=== PATIENT | male | born 1985 | race Two or more races ===

== ENCOUNTER 2023-01-19 11:00 | Inpatient (IN) | payer OTHER ==
[~2023-01-19] VITALS: Ht 185.4 cm; Wt 61.2 kg
[2023-01-19] MEDS ORDERED: HUMIRA PEN40 MG/0.2 (14:42)
[2023-01-24] MEDS ORDERED: RAYOS5 MG (08:08)
[2023-01-24] MEDS ORDERED: FLONASE16 GM (08:09)
== END 2023-01-29 15:50 | disposition home or self-care (01) | DRG 329 ==
LOC: O/R 01-24 05:50 → SURH 01-24 05:50
PROVIDERS: ADMIT Colon & Rectal Surgery; ATTEND Colon & Rectal Surgery
PROC: 0DNW0ZZ Release Peritoneum, Open Approach (ICD-10-PCS; 2023-01-24)
PROC: 0DBN0ZZ Excision of Sigmoid Colon, Open Approach (ICD-10-PCS; 2023-01-24)
PROC: 0DJD8ZZ Inspection of Lower Intestinal Tract, Via Natural or Artificial Opening Endoscopic (ICD-10-PCS; 2023-01-24)
PROC: 0DTF0ZZ Resection of Right Large Intestine, Open Approach (ICD-10-PCS; principal; 2023-01-24 10:05)
DX: K50.012 Crohn's disease of small intestine with intestinal obstruction (principal); K65.8 Other peritonitis; K56.50 Intestinal adhesions [bands], unspecified as to partial versus complete obstruction; K63.2 Fistula of intestine; R59.0 Localized enlarged lymph nodes; K52.89 Other specified noninfective gastroenteritis and colitis; Z20.822 Contact with and (suspected) exposure to COVID-19; Z53.31 Laparoscopic surgical procedure converted to open procedure; Z86.718 Personal history of other venous thrombosis and embolism